=== PATIENT | male | born 1985 ===

== ENCOUNTER 2020-10-23 19:12 | Emergency (ER) | payer SELFPAY ==
[~2020-10-23] VITALS: Ht 134.6 cm; Wt 56.0 kg
[2020-10-23 19:25] VITALS: TEMP 98.4
[2020-10-23 20:28] LABS: BASO % 0.1 % (0.0-2.0); EOS # 0.2 (0.0-0.7); EOS % 3.2 % (0-4.0); GRAN # 3.7 (1.4-6.5); GRAN % 50.3 % (42.2-75.2); HEMATOCRIT 48.5 % (42.0-52.0); HEMOGLOBIN 16.3 g/dl (13.5-18.0); LYMPH # 2.8 (1.2-3.4); LYMPH % 37.9 % (20.0-51.0); MEAN CELL VOLUME 91 fl (80.0-100.0); MEAN CORPUSCULAR HEMOGLOBIN 31 pg (27.0-31.0); MEAN CORPUSCULAR HGB CONC 34 g/dl (33.0-37.0); MEAN PLATELET VOLUME 10.6 fl (7.4-10.4); MONO # 0.6 (0.1-0.6); MONO % 8.4 % (1.7-9.3); PLATELET COUNT 231 K/mm3 (130-400); RED BLOOD COUNT 5.33 M/mm3 (4.20-5.60); REDCELL DISTRIBUTION WIDTH-CV 12.9 % (11.5-14.5)
[2020-10-23] MEDS ORDERED: ANUSOL HC CREAM30 GM TP (20:34)
[2020-10-23] MEDS ORDERED: SURFAK 240240 MG/CAP PO (20:34)
[2020-10-23 20:45] VITALS: BP 131/87; PULSE 74
== END 2020-10-23 20:45 | disposition home or self-care (01) ==
LOC: COL.ER 19:12
PROVIDERS: Emergency Medicine
DX: K64.4 Residual hemorrhoidal skin tags (principal)